=== PATIENT | male | born 1990 | race Caucasian/White ===

== ENCOUNTER 2018-12-06 01:02 | Emergency (ER) | payer OTHER ==
[2018-12-06] MEDS ORDERED: Sulfamethoxazole/Trimethoprim 800-160 MG Tab PO ONE (01:23)
--- NOTE | 2018-12-06 01:28 | EDM.PDOC ---
ED HPI GENERAL MEDICAL PROBLEM - General Chief Complaint: Skin Complaint Stated Complaint: CELLULITIS CONCERN, ABDOMINAL PAIN Time Seen by Provider: 12/06/18 01:12 - History of Present Illness INITIAL COMMENTS - FREE TEXT/NARRATIVE: HISTORY AND PHYSICAL: History of present illness: The patient is a 28 y/o male who is not up-to-date on his tetanus shot and follows with Dr. Joy in our clinic where he receives his Adderall and Suboxone and presents with complaints of skin lesions and rash-like areas on his neck and face that started yesterday. He does not know if he has been using any new products but he did say he has been using a new shampoo and he says that he noticed the bumps and then they became more itchy and now some of them are open. He is concerned about infection. He has none of these lesions on his chest abdomen back upper extremities or lower extremities and they are localized to the neck anteriorly and posteriorly as well as his face but not his scalp. He has had no systemic complaints of fever chills chest pain nausea or vomiting and no diarrhea. He is eating and drinking normally. He says that his hands are intermittently cold and hot tingly but he is not having any weakness Review of systems: As per history of present illness and below otherwise all systems reviewed and negative. Past medical history: As per history of present illness and as reviewed below otherwise noncontributory. Surgical history: As per history of present illness and as reviewed below otherwise noncontributory. Social history: No reported history of drug or alcohol abuse. Family history: As per history of present illness and as reviewed below otherwise noncontributory. Physical exam: General: Well-developed well-nourished thin man who is nontoxic and vital signs are noted by me HEENT: Atraumatic, normocephalic, pupils reactive, negative for conjunctival pallor or scleral icterus, mucous membranes moist, throat clear, neck supple, nontender, trachea midline. Cervical adenopathy or nuchal rigidity and there are no oropharyngeal lesions Lungs: Clear to auscultation, breath sounds equal bilaterally, chest nontender. Heart: S1S2, regular rate and rhythm no overt murmurs Abdomen: Soft, nondistended, nontender. Pelvis deferred Genitourinary: Deferred. Rectal: Deferred. Extremities: Atraumatic, no edema and full range of motion Neurovascular unremarkable. Neuro: Awake, alert, oriented. Cranial nerves II through XII unremarkable. Cerebellum unremarkable. Motor and sensory unremarkable throughout. Exam nonfocal. Skin: There are multiple lesions seen on the anterior and posterior neck as well as on the face which are either small dot-like scab-like areas or circular round-like lesions some of which are scratched open end of which have any surrounding erythema or soft tissue swelling. These lesions do not extend into the scalp and there are no lesions elsewhere on the body including upper and lower extremities chest abdomen and back. Diagnostics: [] Therapeutics: Bactrim, patient declined a tetanus shot and says he will get it with his provider We discussed that this rash/lesions are very localized to the head and neck and he will need to explore his home environment to see if there is anything triggering this. In the interim we will treat the open lesions with Bactroban as well as oral Bactrim and have advised him to take an antihistamine such as Benadryl Claritin or Sindy to help with the itchiness. I've advised him to follow-up with Dr. Joy Impression: Skin lesions to face and neck, early cellulitis Definitive disposition and diagnosis as appropriate pending reevaluation and review of above. - Related Data Allergies Allergy/AdvReac Type Severity Reaction Status Date / Time No Known Allergies Allergy Verified 12/06/18 01:15 Home Meds: Home Meds Buprenorphine HCl/Naloxone HCl [Suboxone 4 mg-1 mg Sl Film] 0 mg PO DAILY [History] Dextroamphetamine/Amphetamine [Adderall 20 mg Tablet] 20 mg PO TID 12/06/18 [ History] Past Medical History Psychiatric History: Reports: ADHD Social & Family History - Family History Family Medical History: Noncontributory - Tobacco Use Smoking Status *Q: Current Every Day Smoker Years of Tobacco use: 9 Packs/Tins Daily: 0.5 - Caffeine Use Caffeine Use: Reports: None - Recreational Drug Use Recreational Drug Use: No ED ROS GENERAL - Review of Systems Review Of Systems: ROS reveals no pertinent complaints other than HPI. ED EXAM, SKIN/RASH Exam: See Below (See dictation) Course - Vital Signs Last Recorded V/S: Last Vital Signs Temp 36.0 C 12/06/18 01:05 Pulse 93 12/06/18 01:05 Resp 17 08/14/19 01:05 BP 120/81 12/06/18 01:05 Pulse Ox 96 12/06/18 01:05 Departure - Departure Time of Disposition: Disposition: Home, Self-Care 01 Condition: Good Clinical Impression: Skin lesions Cellulitis Qualifiers: Site of cellulitis: unspecified site Qualified Code(s): L03.90 - Cellulitis, unspecified - Discharge Information Referrals: Rodo Joy MD [Primary Care Provider] - Additional Instructions: The following information is given to patients seen in the emergency department who are being discharged to home. This information is to outline your options for follow-up care. We provide all patients seen in our emergency department with a follow-up referral. The need for follow-up, as well as the timing and circumstances, are variable depending upon the specifics of your emergency department visit. If you don't have a primary care physician on staff, we will provide you with a referral. We always advise you to contact your personal physician following an emergency department visit to inform them of the circumstance of the visit and for follow-up with them and/or the need for any referrals to a consulting specialist. The emergency department will also refer you to a specialist when appropriate. This referral assures that you have the opportunity for followup care with a specialist. All of these measure are taken in an effort to provide you with optimal care, which includes your followup. Under all circumstances we always encourage you to contact your private physician who remains a resource for coordinating your care. When calling for followup care, please make the office aware that this follow-up is from your recent emergency room visit. If for any reason you are refused follow-up, please contact the [facility] emergency department at and ask to speak to the emergency department charge nurse. [facility] Primary care- Internal Medicine and Family [address] [address] Please fill your prescription for Bactrim antibiotics as well as the Bactroban ointment. Apply the ointment as directed. Please try to explore your world to see what may have triggered the rash and these lesions. Use xnnu-lvt-bddiloc antihistamine such as Benadryl/ferritin/Sindy/or Zyrtec to help with the itching and call and schedule a follow-up appointment with your provider in the clinic for reevaluation further care. Return to ER as needed and as discussed
== END 2018-12-06 01:38 | disposition home or self-care (01) ==
LOC: MW.ED 01:02
DX: L03.221 Cellulitis of neck (principal); L03.211 Cellulitis of face; F90.9 Attention-deficit hyperactivity disorder, unspecified type; F17.210 Nicotine dependence, cigarettes, uncomplicated; Z79.899 Other long term (current) drug therapy
CPT/HCPCS: 99282; A9270

== ENCOUNTER 2021-09-20 07:32 | Emergency (ER) | payer SELFPAY ==
[2021-09-20] MEDS ORDERED: Penicillin G Benzathine 1,200,000 Units/2 ML Syringe IM ONE (07:45)
[2021-09-23 14:07] LABS: C.TRACHOMATIS BY TMA Negative (Negative); N.GONORRHOEAE BY TMA Positive (Negative)
== END 2021-09-20 08:30 | disposition home or self-care (01) ==
LOC: MW.ED 07:32
DX: J02.0 Streptococcal pharyngitis (principal)
CPT/HCPCS: 87491; 87591; 87651; 96372; 99283; J0561

== ENCOUNTER 2022-10-06 22:37 | Emergency (ER) | payer SELFPAY ==
[2022-10-07] MEDS ORDERED: Acetaminophen 325 MG Tab PO ONE (00:33)
[2022-10-07] MEDS ORDERED: Ibuprofen 400 MG Tab PO ONE (00:33)
[2022-10-07] MEDS ORDERED: oxyCODONE 5 MG Tab PO ONE (00:34)
[2022-10-07] MEDS ORDERED: Amoxicillin/Clavulanate K 875-125 MG Tab PO ONE (01:25)
== END 2022-10-07 01:43 | disposition home or self-care (01) ==
LOC: MW.ED 22:37
DX: K04.7 Periapical abscess without sinus (principal)
CPT/HCPCS: 36415; 86308; 99283; A9270

== ENCOUNTER 2022-12-29 05:06 | Emergency (ER) | payer SELFPAY ==
[2022-12-29] MEDS ORDERED: oxyCODONE 5 MG Tab PO ONE (05:56)
[2022-12-29] MEDS ORDERED: Amoxicillin/Clavulanate K 875-125 MG Tab PO ONE (05:56)
== END 2022-12-29 06:34 | disposition home or self-care (01) ==
LOC: MW.ED 05:06
DX: K02.9 Dental caries, unspecified (principal)
CPT/HCPCS: 99282; A9270; 99283

== ENCOUNTER 2023-04-12 13:37 | Emergency (ER) | payer SELFPAY | END 2023-04-12 14:28 | disposition home or self-care (01) | LOC: MW.ED 13:37 | DX: F32.A Depression, unspecified (principal); Z79.899 Other long term (current) drug therapy | CPT/HCPCS: 99284 ==

== ENCOUNTER 2023-09-27 16:52 | Emergency (ER) | payer SELFPAY | END 2023-09-27 18:05 | LOC: MW.ED 16:52 | DX: T18.5XXA Foreign body in anus and rectum, initial encounter (principal); Z75.8 Other problems related to medical facilities and other health care; W44.8XXA Other foreign body entering into or through a natural orifice, initial encounter | CPT/HCPCS: 74018; 74018-26; 99283 ==

== ENCOUNTER 2023-11-11 17:24 | Emergency (ER) | payer SELFPAY ==
[2023-11-11] MEDS ORDERED: Acetaminophen 325 MG Tab ONE (18:07)
[2023-11-11] MEDS: Acetaminophen 325 MG Tab PO ONE (18:12)
== END 2023-11-11 19:15 | disposition home or self-care (01) ==
LOC: MW.ED 17:24
DX: S00.83XA Contusion of other part of head, initial encounter (principal); W19.XXXA Unspecified fall, initial encounter
CPT/HCPCS: 70450; 99284; A9270

== ENCOUNTER 2024-01-02 09:55 | Emergency (ER) | payer MEDICAID ==
[2024-01-02] MEDS: Ibuprofen 600 MG Tab PO ONE (10:41)
[2024-01-02] MEDS: Sulfamethoxazole/Trimethoprim 800-160 MG Tab PO ONE (10:42)
== END 2024-01-02 10:45 | disposition home or self-care (01) ==
LOC: MW.ED 09:55
DX: F15.90 Other stimulant use, unspecified, uncomplicated (principal); L03.116 Cellulitis of left lower limb; L02.416 Cutaneous abscess of left lower limb; R20.2 Paresthesia of skin; Z75.8 Other problems related to medical facilities and other health care; F17.210 Nicotine dependence, cigarettes, uncomplicated
CPT/HCPCS: 99283; A9270; 99284